=== PATIENT | female | born 1990 | race Caucasian/White ===

== ENCOUNTER → 2018-05-30 13:36 | Outpatient (CLI) | payer SELFPAY ==
[2018-05-30 15:57] LABS: Thyroid Stim Hormone (TSH) 1.36 uIU/mL (0.358-3.74)
[2018-06-05 13:30] LABS: HPV Reflexed? NOT INDICATED
== END ==
PROVIDERS: Visit Provider Obstetrics & Gynecology
DX: Z12.4 Encounter for screening for malignant neoplasm of cervix (principal); N92.6 Irregular menstruation, unspecified
CPT/HCPCS: 84443; 87624; 88175; G0145

== ENCOUNTER → 2018-09-13 13:52 | Outpatient (CLI) | payer SELFPAY ==
[2018-09-13 17:02] LABS: Chlamydia Trachomatis by PCR Negative (Negative); Neisserai gonorrhoeae by PCR Negative (Negative); Probe Check PASS; Specimen Processing Control PASS
[2018-09-13 17:03] LABS: Sample Adequacy Control PASS
== END ==
PROVIDERS: Visit Provider Obstetrics & Gynecology
DX: Z11.3 Encounter for screening for infections with a predominantly sexual mode of transmission (principal)
CPT/HCPCS: 87491; 87591

== ENCOUNTER → 2018-09-18 15:06 | Outpatient (CLI) | payer SELFPAY ==
[2018-09-18 17:36] LABS: Color, Urine Yellow (Yellow); Glucose, Dipstick Normal (Normal); Ketone-Dipstick 5 mg/dl (Negative); Leukocyte Esterase-Dipstick 500 /ul (Negative); Nitrite-Dipstick Negative (Negative); Occult Blood-Urine Negative /ul (Negative); Protein-Dipstick Negative (Negative); Specific Gravity, Urine 1.025 (1.002-1.030); Urine Bilirubin Dipstick Negative (Negative); Urine Clarity Clear (Clear); Urine Urobilinogen Normal (Normal)
[2018-09-18 17:39] LABS: Absolute Lymphocyte Count 1.26 X10^3/ul (0.83-4.51); Absolute Neutrophil Count 8.5 X10^3/uL (2.0-7.7); Basophil# 0.01 X10^3/uL; Basophil% 0.1 % (0-1); Eosinophil# 0.03 X10^3/uL; Eosinophils% 0.3 % (0-5); Hematocrit 37.8 % (37-47); Hemoglobin 12.8 g/dl (12.0-15.0); Lymphocyte # 1.26 X10^3/ul (4.0); Lymphocyte % 12.3 % (19-41); Mean Corp Hgb Conc 33.9 g/gl (32-36); Mean Corpuscular Hgb 27.7 pg (27.0-32.0); Mean Corpuscular Volume 81.8 fL (81-99); Monocyte# 0.46 X10^3/uL; Monocyte% 4.5 % (0-10); Neutrophil % 82.6 % (47-70); Platelet Count 305 K/mm3 (150-450); RBC Distribution Width CV 12.2 % (11.6-14.6); RBC Distribution Width SD 35.6 fl (35.1-43.9); Red Blood Count 4.62 M/mm3 (4.2-5.4); White Blood Count 10.3 K/mm3 (4.4-11.0)
[2018-09-18 17:41] LABS: POSITIVE COUNT NO; POSITIVE DIFFERENTIAL NO; POSITIVE MORPHOLOGY NO
[2018-09-18 18:07] LABS: Thyroid Stim Hormone (TSH) 1.35 uIU/mL (0.358-3.74)
[2018-09-18 18:46] LABS: HIV - WCH Non-Reactive (Nonreactive); Rubella IgG 99.1 IU/mL
[2018-09-20 03:12] LABS: Prenatal RPR NONREACTIVE (NONREACTIVE)
[2018-09-20 08:17] LABS: HEPATITIS B SURFACE AG Negative (Negative); Hep C Antibodies <0.1 s/co ratio (0.0-0.9)
== END ==
PROVIDERS: Visit Provider Obstetrics & Gynecology
DX: Z34.81 Encounter for supervision of other normal pregnancy, first trimester (principal)
CPT/HCPCS: 36415; 80307; 81002; 84443; 85025; 86703; 86762; 86803; 87340

== ENCOUNTER → 2019-02-13 13:03 | Outpatient (CLI) | payer SELFPAY ==
[2019-02-13 14:02] LABS: Hematocrit 31.5 % (37-47); Hemoglobin 10.7 g/dL (12.0-15.0); Mean Corpuscular Volume 85.4 fL (81-99); Mean Platelet Vol. 11.4 fl (6.2-12.0); Platelet Count 154 K/mm3 (150-450); RBC Distribution Width CV 12.3 % (11.6-14.6); RBC Distribution Width SD 37.7 fl (35.1-43.9); Red Blood Count 3.69 M/mm3 (4.2-5.4); White Blood Count 7.9 K/mm3 (4.4-11.0)
[2019-02-13 14:16] LABS: Glucose Challenge Gest 1H 50g 120 mg/dL (70-140)
== END ==
LOC: WOBLAB 13:03
PROVIDERS: Visit Provider Obstetrics & Gynecology
DX: Z34.83 Encounter for supervision of other normal pregnancy, third trimester (principal); Z3A.00 Weeks of gestation of pregnancy not specified
CPT/HCPCS: 36415; 82950; 85027

== ENCOUNTER → 2019-04-17 14:14 | Outpatient (CLI) | payer SELFPAY | LOC: LABSPEC 14:15 | PROVIDERS: Visit Provider Obstetrics & Gynecology | DX: Z36.85 Encounter for antenatal screening for Streptococcus B (principal) | CPT/HCPCS: 87081 ==

== ENCOUNTER 2019-05-10 15:05 | Inpatient (IN) | payer SELFPAY ==
[2019-05-10 14:52] VITALS: BMI 29.7
[2019-05-10 15:02] LABS: ROM Internal Control Test YES-OK TO RESULT pt. (Internal QC)
[2019-05-10 15:04] LABS: ROM Patient Test POSITIVE (Negative); Record Kit Lot#, ROM+ J8255
[2019-05-10] MEDS: Lactated Ringers 1,000 ML 50 ML IV (15:40)
[2019-05-10] MEDS: Lactated Ringers 500 ML 999 ML IV (15:48)
[2019-05-10 16:00] LABS: Absolute Lymphocyte Count 1.39 X10^3/uL (0.83-4.51); Absolute Neutrophil Count 8.1 X10^3/uL (2.0-7.7); Basophil# 0.01 X10^3/uL; Basophil% 0.1 % (0-1); Eosinophil# 0.02 X10^3/uL; Eosinophils% 0.2 % (0-5); Hematocrit 33.9 % (37-47); Lymphocyte # 1.39 X10^3/ul (4.0); Lymphocyte % 13.7 % (19-41); Mean Corp Hgb Conc 32.4 g/dL (32-36); Mean Corpuscular Hgb 25.2 pg (27.0-32.0); Mean Corpuscular Volume 77.6 fL (81-99); Mean Platelet Vol. 12.8 fl (6.2-12.0); Monocyte% 5.9 % (0-10); NRBC Flagged by Analyzer 0 % (0-5); Neutrophil # 8.08 X10^3/uL (2.7-7.7); Neutrophil % 79.7 % (47-70); Platelet Count 193 K/mm3 (150-450); RBC Distribution Width SD 38.7 fl (35.1-43.9); Red Blood Count 4.37 M/mm3 (4.2-5.4); White Blood Count 10.1 K/mm3 (4.4-11.0)
[2019-05-10] MEDS: fentaNYL-bupivacaine (epidural) 100 ML BAG EPIDURAL ×2 (16:15→21:06)
--- NOTE | 2019-05-10 18:14 | HP.PCM_ITS ---
History and Physical Date of Admission: 05/10/19 [facility] [place] - H[place]ORY AND PHYSICAL (05/10/2019) Name: ED SALINAS OB Physician: SHARON [place]'s Physician: [facility] ...................................................................... : 1990 Age: 28 Address: [address] [place] [address] Phone: (h) [phone] ([phone] Insurance Carrier: Emergency Contact: VJ SALINAS [phone] ...................................................................... Ed is a 28 yo at 40w1d gestation by 6w5d US; she reports SROM of clear fluid at 0800; has been been remarkable for an edge previa and bilateral renal pelvis dilation a .4cm which was found to be resolved at third trimester US; She is GBS negative. Final GARRICK: 05/09/19 By Ultrasound: 6 weeks 5 days PARITY: (G-Total Pregnancies P-Fullterm,Premature,Induced AB,Spont AB, Ectopics, Multiple,Living) GARRICK CONFIRMATION: By LMP: 07/16/18 Initial Exam: 04/22/19 By First Ultrasound Exam: 05/09/19 Final GARRICK: 05/09/19 BLOOD TYPE: AFP: 1 HR PG: GBS: Original Ordering Provider: Carina Marino Comments: VAG/REC LISA Culture Group B Beta Streptococcus is not isolated. Rublla titer (>10 immune)-- Hepatatis B renetta AG-- CULTURES:-- OB PROBLEM LIST: Decline AFP and CF tests. First del at [facility]. OB tour suggested. Edge previa, bilateral renal pelvis dilation at .4 cm; repeat u/s at 28-32 weeks gestation --resolved ALLERGIES: No Known Allergies MEDICATIONS: Macrobid 100 mg capsule One capsule by mouth 2 x daily x 7 days phenazopyridine 200 mg tablet One tablet by mouth every 8 hrs x 3 days 28 mg iron-800 mcg tablet One pill by mouth once a day Zofran 8 mg tablet take 1 tablet by mouth q 6 hr prn Nausea/vomitting SOCIAL HISTORY: Smoking - Never Alcohol Use - None Diet - moderate, balanced diet, caffeine < 2 drinks per day and [employer] member. Water intake 20-40 oz daily. Lifestyle - moderate stress lifestyle and Exercise - Active w family. 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 Job Description - Illicit Drug Use - None Sexual Activity - Residence - owns a home and lives with Place of - [place] Spouse-Sig Other Name - [facility] Spouse-Sig Other Occupation - Children's Intelligence Agent -- [employer] Spouse-Sig Other Phone No - [phone] Children Name(s) - Ross(17) PRIOR DELIVERY HISTORY DEL DATE GEST LAB WT LB WT OZ TYPE ANES LABOR TX Sep 17 41 6 [phone] Vag Epidural No ANTEPARTUM FLOW CHART VISIT GE RTC FU F F ND U U DATE WK MD WKS HT PN HR M SS BP ED WT ND GL D EF ST __ ____ ___ __ __ ___ __ __ __ ___ __ __ __ ___ __ 18 Apr KW 1 38 V + + 122/82 1+ 165 tr - Apr SHM 1 35 V + + 134/72 sl 161 tr - 2 50 -2 03 Apr 37 JMW 1 34 V + + 130/78 0 157 - - S -1 Mar 36 JMW 1 36 V + + 138/72 tr 157 tr - 2 50 -2 Mar JMW 1 34 + 126/70 sl 155 tr - Mar 33 JMW 2 34 + + 124/80 tr 150 tr - Mar 22 JMW 2 32 + + 120/80 0 152 tr - Feb 15 JMW 3 27 + + 108/70 0 146 - 1+ Feb 12 JMW 3 24 + + 122/82 0 141 tr - December 08 JMW 4 20 + + 110/60 0 135 - - December 04 JMW 4 15 + + 120/80 0 129 - - 03 Oct 31 DS 4 ? U+ O 112/62 0 128 - - Aug 28 JMW 4 U+ US 120/70 0 124 - - ANTEPARTUM NOTE(S): May 09 2019: feeling well. Cervix check. May 02 2019: doing well Apr 24 2019: feeling well. Cervix check. Apr 17 2019: GBS Today,LARC signed,Good FM Apr 10 2019: FM Noted,Low Pressure Mar 26 2019: Feeling Well, Good FM Mar 13 2019: feeling well. Feb 13 2019: feeling well. glucola drawn today. Jan 22 2019: Glucola/Instructions Given,Good FM, Feeling Well Dec 19 2018: feeling well., US OK Nov 21 2018: feeling well., Declines AFP Oct 23 2018: see note Sep 18 2018: Sono Today,Feeling Well COMPREHENSIVE ANTEPARTUM NOTE(S): May 09 2019: Feeling well; reports active FM; denies VB, LOF; reports UCs and extreme pelvic pressure, desires IOL; VE per patient request , soft, posterior; consents read and signed, post dates IOL scheduled for May 13; discussed warning signs, s/s Labor, when to call/come in; RTO 6 weeks for PPV - KVW May 02 2019: Feeling well; reports active FM; denies UCs, VB, LOF; measuring < dates, US ordered, shows normal size/growth, normal SUSAN, grade 3 placenta; discussed w/Dr. Ordonez, no imment need for deliveryat this time; discussed warning signs, s/s Labor, when to call/come in; RTO 1 week for PNV - KVW, Apr 21 2019: H taken to OB. tkg Apr 10 2019: Feeling well; reports active FM; denies UCs, VB, LOF; some heartburn, generally relieved by Tums; previous delivery was induced at 40+ weeks with cervidil, and progressed rapidly, short 2nd stage; discussed non pharmaceutical managemeht of heartburn, signs, s/s Labor, when to call/come in; RTO 1 week for PNV, GBS swab KVW Feb 26 2019: Ed calling @ 29 wks 5 days with onset urinary frequency 2 days ago, now having burning w/urination this morning. She is on vacation in [place], [place]. Advised plenty of water. Per discussion w/Dr. Marino. Rx Macrobid 100 mg # 14, one capsule by mouth q 12 hrs x 7 days, NO RF and Pyridium 200mg # 9, one tablet by mouth q 8 hrs x 3 days, NO RF called to Dolly, pharmacist, [place] [address] [facility], [facility] [address]. [place] [phone]. Oct 23 2018: labs were reviewed and are normal. Blood type AB positive. US c/w dating today. Oct 23 2018: Ed reporting constipation, nausea. She has Colace at home--advised to take BID. Discussed importance of keeping stool soft and moving daily. Can add a daily probiotic, which will help. Daily walk, weather is getting nicer. Plenty of water--urine spgr today 1.030. Sep 18 2018: Dolores are here for NOB nurse visit at 6 w 5 d with GARRICK May 09, 2019 planning a vag del at [facility] probably with an epidural, using [facility] for post disch ped care and to breastfeed. 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 They are happy about the . She states she had hypertension starting at 33 weeks with her first baby, delivered at 41.3 weeks in [place], [place]. She almost didn't pass the glucose tolerance test. Their baby weighed 6# 7 oz and had a couple NICU days from rapid delivery. She had an episiotomy and 3rd degree tear. She has NKA to drugs, food. latex or environment. Her diet is well balanced w minimal caffeine and 20-40 oz of water daily. She is fairly active at home with their two year old son and was enc to walk 20 min daily. She is a lifetime non smoker, non drinker and denies street drug use. Genetic Screening form completed noting Vj has a cousin with Down's Syndrome. They decline AFP and cF tests. Warning signs in pg reviewed as well as otc meds ok to use, reaching the office after hours, lifting restriction of 25# and wearing seatbelt low on her abd w understanding voiced. Their son weighs almost 30#- advised use care and good body mechanics if she has to lift him. They have a copy of What to Expect. They have no cats. She is aware of litter box issues. She's had chickenpox. Routine labs drawn today and US done. did not go well before and office Class suggested and info given. Info also given on [facility] OB dept tours. Enc to call w any concerns. Visit lasted approx 50 min. Ana MELENDREZ. Sep 16 2018: Cervical cultures NEG. EB Sep 13 2018: Ed presents here today for Missed Menses appointment. 27 y.o. G 3 P 1 non-smoker with regular menses and LMP of 12-25-18 lasting her average of 6-7 days. UPT is positive today in our Office. Presents at 8 weeks 2 days with an approximate GARRICK of 04-21-19. History of in 2017 at [facility]. Denies spotting/bleeding thus far in . Reports slight nausea and tender breasts. Currently taking an OTC Vitamin with Educational Materials given. Medication list up-dated. History of normal pap screenings with last in 2017. OLIVERIO Sep 13 2019: ok May 30 2018: Ed presents here today as referral from friend Ivis Saez for low libido and pain with intercourse. 27 y.o. G 2 P 1 non-smoker with regular menses and LMP of 10-13-18 lasting her average of 6-7 days. Reports she has been having these symptoms and concerns for the last 5-6 months. We briefly discussed stepping out of the box. Denies other client program manager concerns at this time. Last pap screening in 2015 with history of all normals. Medication list with No Meds. OLIVERIO May 30 2018: ok REVIEW OF SYSTEMS: GENERAL - Denies fever, or chills SKIN - Denies rash, new skin lesions, or change in moles EYES - Denies blurred vision, or change in visual acuity EARS - Denies ear pain, or difficulty hearing NOSE - Denies nasal congestion, discharge, or bleeding MOUTH - Denies sore throat, or difficulty swallowing NECK - Denies pain or swelling RESPIRATORY - Denies shortness of breath, cough, wheezing CARDIOVASCULAR - Denies palpitations, chest pain, orthopnea, PND, peripheral edema, syncope or claudication GASTROINTESTINAL - Denies nausea, vomiting, diarrhea, constipation, Denies abdominal pain, melena and or bright red blood GENITOURINARY - Denies dysuria, frequency of urination, urgency, or hesitancy MUSCULOSKELETAL - Denies joint or muscle pain, or back pain NEUROLOGICAL - Denies localized numbness, weakness, or tingling PSYCHIATRIC - Denies depression, anxiety, substance abuse or suicide attempts ENDOCRINE - Denies heat or cold intolerance, weight loss or gain, increasing thirst HEMATO-IMMUNOLOGIC - Denies easy bruising, bleeding, oral ulcerations or recurrent infections GENETICS SCREENING: Age 35+ years: No Thalassemia: No Neural Tube Defect: No Down Syndrome: No KAYLA-SACHS: No Sickle Cell Disease: No Hemophilia: No Musc. Dystrophy: No Cystic Fibrosis: No-declines screening Troy Chorea: No Mental Retardation: No Fragile X: No Other genetic: No Other defects: No SABs/still births: No Drugs since LMP: No INFECTION HISTORY: High risk AIDS: No High risk Hepatitis: No Exposed to TB: No Exposed to Herpes: No Rash/viral illness since LMP: No History of STD: No MENSTRUAL HISTORY: *Menses Amount/Duration: 6-7 DAYSMenses Regularity: RegularFrequency: monthlyMenarche (Age Onset): 11* PAST SUMMARY: PARITY: 1. Total Pregnancies............ 3 2. Full Term Pregnancies........ 1 3. Premature.................... 0 4. Abortions - Induced.......... 0 5. Abortions - Spontaneous...... 1 6. Ectopics..................... 0 7. Multiple Births.............. 0 8. Living Children.............. 1 PAST #1: Date of :.................. 09/21/16 Gestation Weeks:................ 41 Length of labor(hours):......... 6 Sex:............................ M Weight-lbs:............... 6 Weight-oz:................ 7 Type of Delivery:............... Vag Type of Anesthesia:............. Epidural Place of Delivery:.............. [place] Treatment of Labor?:.... No Comment: 33W BP UP, Labs for : ED SALINAS since 08/12/2018 ORDER DATEIN DESCRIPTION VALUE UNITS RANGE A+ COMMENT TYPE AND SCREEN 05/10/19 Reason for Type AND Screen/Red Cells: Labor [facility]~[address] [place], [address]~ BLOOD TYPE GEL AB POSITIVE N ANTIBODY SCREEN NEGATIVE N Reviewed by ANDERSON w CBC W/DIFF, AUTOMATED 05/10/19 NOTE Original Ordering Provider: SOWMYA Pereira WBC 10.1 K/mm3 4.4-11.0 RBC 4.37 M/mm3 4.2-5.4 HGB 11.0 g/dL 12.0-15.0 L HCT 33.9 % 37-47 L w MCV 77.6 fL 81-99 L MCH 25.2 pg 27.0-32.0 L MCHC 32.4 g/dL 32-36 RDW CV 14.0 % 11.6-14.6 RDW SD 38.7 fl 35.1-43.9 PLT 193 K/mm3 150-450 MPV 12.8 fl 6.2-12.0 H NEUT% 79.7 % 47-70 H LY% 13.7 % 19-41 L MONO% 5.9 % 0-10 EO% 0.2 % 0-5 BASO% 0.1 % 0-1 IM GRAN % 0.400 % 0.0-0.9 IG% - Immature Granulocytes (promyelocytes, myelocytes and metamyelocytes) > 1% indicates that a LEFT SHIFT is Present. ABSOLUTE NEUT 8.1 X10 3/uL 2.0-7.7 H ABSOLUTE LYMPH 1.39 X10 3/uL 0.83-4.51 NRBC, FLAGGED 0 % 0-5 Reviewed by ANDERSON (ROM) RUPTURE OF MEMBRANES 05/10/19 NOTE Original Ordering Provider: SOWMYA Pereira ROM POSITIVE Negative H Amniotic fluid present indicates rupture of Membranes. RESULTS CALLED TO GHAZALA 05/10/19 Lora2 Mary Negron. REPORT READ BACK BY DARREN . Reviewed by ANDERSON CULTURE, GROUP B STREPTOCOCCUS 04/17/19 NOTE Original Ordering Provider: Carina Marino Comments: VAG/REC LISA Culture Group B Beta Streptococcus is not isolated. Reviewed by CARINA GLUCOSE CHALLENGE GEST 1H 50G 02/13/19 NOTE Original Ordering Provider: Carina Marino GLU GEST 50G 1H 120 mg/dL 70-140 Reviewed by CARINA CBC-COMPLETE BLOOD CNT NO DIFF 02/13/19 NOTE Original Ordering Provider: Carina Marino WBC 7.9 K/mm3 4.4-11.0 RBC 3.69 M/mm3 4.2-5.4 L HGB 10.7 g/dL 12.0-15.0 L HCT 31.5 % 37-47 L MCV 85.4 fL 81-99 MCH 29.0 pg 27.0-32.0 MCHC 34.0 g/dL 32-36 RDW CV 12.3 % 11.6-14.6 RDW SD 37.7 fl 35.1-43.9 PLT 154 K/mm3 150-450 MPV 11.4 fl 6.2-12.0 Reviewed by CARINA HEPATITIS C ANTIBODIES 09/18/18 NOTE Original Ordering Provider: Carina Marino HEP C AB <0.1 s/co ratio 0.0-0.9 Negative: < 0.8 Indeterminate: 0.8 - 0.9 Positive: > 0.9 The CDC recommends that a positive HCV antibody result be followed up with a HCV Nucleic Acid Amplification test (225654). Reviewed by BROOKLYNN HEPATITIS B SURFACE AG 09/18/18 NOTE Original Ordering Provider: Carina Marino HB SURF AG Negative Negative Performed at: [address] [id number] Jig Builder: Lew Cowart PhD, Phone: [phone] Reviewed by BROOKLYNN RPR 09/18/18 NOTE Original Ordering Provider: Carina Marino RPR NONREACTIVE NONREACTIVE Reviewed by BROOKLYNN HIV - [facility] 09/18/18 NOTE Original Ordering Provider: Carina Marino HIV - [facility] Non-Reactive Nonreactive Reviewed by CARINA RUBELLA IGG 09/18/18 NOTE Original Ordering Provider: Carina Marino RUBELLA IGG 99.1 IU/mL Antibody results Interpretation of Immune Status < 5 IU/ml Presumed Non-immune 5 - < 10 IU/ml Equivocal > or = 10 IU/ml Presumed Immune Reviewed by CARINA T AND S-NO CHARGE W/PNP 09/18/18 Reason for Type AND Screen/Red Cells: Surgery? N [facility]~[address] [place], [address]~ BLOOD TYPE GEL AB POSITIVE N AB SCREEN GEL NEGATIVE N Reviewed by CARINA THYROID STIM HORMONE (TSH) 09/18/18 NOTE Original Ordering Provider: Carina Marino TSH 1.35 uIU/mL 0.358-3.74 Reviewed by CARINA CBC W/DIFF, AUTOMATED 09/18/18 NOTE Original Ordering Provider: Carina Marino WBC 10.3 K/mm3 4.4-11.0 RBC 4.62 M/mm3 4.2-5.4 HGB 12.8 g/dl 12.0-15.0 HCT 37.8 % 37-47 MCV 81.8 fL 81-99 MCH 27.7 pg 27.0-32.0 MCHC 33.9 g/gl 32-36 RDW CV 12.2 % 11.6-14.6 RDW SD 35.6 fl 35.1-43.9 PLT 305 K/mm3 150-450 MPV 10.0 fl 6.2-12.0 NEUT% 82.6 % 47-70 H LY% 12.3 % 19-41 L MONO% 4.5 % 0-10 EO% 0.3 % 0-5 BASO% 0.1 % 0-1 IM GRAN % 0.200 % 0.0-0.9 IG% - Immature Granulocytes (promyelocytes, myelocytes and metamyelocytes) > 1% indicates that a LEFT SHIFT is Present. ABSOLUTE NEUT 8.5 X10 3/uL 2.0-7.7 H ABSOLUTE LYMPH 1.26 X10 3/ul 0.83-4.51w Reviewed by CARINA URINALYSIS, ROUTINE (DIPSTICK) 09/18/18 NOTE Original Ordering Provider: Carina Marino COLOR Yellow Yellow CLARITY Clear Clear GLUCOSE, UR Normal mg/dl Normal BILIRUBIN URINE Negative mg/dL Negative KETONE UR 5 mg/dl Negative H SP.GR. DIPSTX 1.025 1.002-1.030 PH UR 5.0 5.0 - 8.0 PROT DIPSTX Negative mg/dl Negative UROBILI Normal mg/dl Normal NITRITE UR Negative Negative OCCULT BLOOD-URw Negative /ul Negative LEUK ESTERASE 500 /ul Negative H Reviewed by CARINA URINE DRUG SCREEN (VISTA) 09/18/18 NOTE Original Ordering Provider: Carina aMrino TO BE CONFIRMED CONFIRMATORY TESTING FOR ALL POSITIVE URINE DRUG SCREEN RESULTS WILL ONLY BE SENT OUT UPON PHYSICIAN ORDER. VISTA Urine Drug Screen methods provide only preliminary analytical test results. A more specific alternate chemical method must be used in order to obtain a confirmed analytical result. Gas chromatography/mass spectrometery (GC/MS) is the preferred confirmatory method. Clinical consideration and professional judgement should be applied to any drug of abuse test result, particularly when preliminary positive results are used. URINE TCA TESTING MUST BE ORDERED SEPARATELY. USE TEST MNEMONIC: UTCA Reviewed by CARINA gonzalez CT/CHRISTOPHER [facility] BY PCR 09/13/18 NOTE Original Ordering Provider: Carina Marino [facility] PCR Negative Negative NG BY PCR Negative Negative Reviewed by BROOKLYNN PROVIDER SIGNATURE ( REQUIRED) PHYSICAL EXAMINATION General Appearence: 28 yo female in no acute distress Vital Signs: AF, VSS Heart: RRR without rubs or gallops Lungs: CTA x 2 Breasts: deferred Abdomen: gravid Pelvis: Cervix: 5/80/-1 at 1500 Presentation: cephalic Fetus: Size: AGA Movement: present Heart: 135 baseline, moderate variability, with accels, no decels UCs: Q 3-5 minutes Impression:28 yo at 40w1d gestation by 6w5d US SROM in active Labor GBS negative Cat 1 FHTs Plan: Admit to inpatient Continuous EFM Begin pitocin augmentation
[2019-05-10] MEDS: Oxytocin 30 units/NS 500 ml 30 UNITS/500 ML IV.SOLN IV (21:25)
[2019-05-10] MEDS: Oxytocin 30 units/NS 500 ml 30 UNITS/500 ML IV.SOLN 334 UNITS IV (23:25)
--- NOTE | 2019-05-11 00:13 | PCM.OPRPT ---
Vaginal Delivery Maternal Presentation: Active Labor, Spontaneous Rupture of Membranes Active labor after spontaneous rupture of membranes at home Method of Induction: Pitocin Amniotic Membrane Rupture Type: Artificial - rupture of forebag prior tro delivery Rupture of Membrane time: 1300 Amniotic Fluid Description: Clear, Moderate meconium Final GARRICK: 05/09/19 Final GARRICK Source: US <20 weeks Gestational age: 40 Weeks and 1 Days doctor who attended delivery (if requested by OB): Justin Yan Date of Procedure: 05/11/19 Pre-Operative Diagnosis: 28 yo at 40 weeks 1 day gestation, active labor with SROM at home Post-Operative Diagnosis: Surgery/ Procedure Performed: Spontaneous Vaginal Delivery Type of Anesthesia: Epidural Description of Procedure: Pushed well and delivered a vigorous male OA to TRINO over a second degree vaginal/perineal laceration; shoulders followed easily; placed on mother's abdomen, cord clamped x 2 by provider, cut by FOB and handed over to waiting pediatric staff as moderate meconium stained fluid had been noted during labor; the baby was soon returned to his mother, APGARS 8/9; placenta delivered spontaneously, Suhas mechanism, intact with trailing membranes noted, 3-vessel cord, central insertion; second degree vaginal/perineal laceration repaied with 3-0 Vicryl, good hemostasis obtained; EBL 450 Lap sponge, Raytec and instrument count correct x 2 with RN Presentation: Vertex, TRINO Placental Delivery Description: Spontaneous Placenta Disposition: [facility] Cord Vessel Description: 3 Vessels Cord Entanglement: None Estimated Blood Loss: 450 Infant A gender: Female (1 minute): 8 (5 minute): 9 Laceration: Midline, Perineal Extension/lac Medications given after delivery: IV Pitocin
[2019-05-11 05:42] VITALS: BP 135/80; PULSE 97; RESP 18; TEMP 37.2
[2019-05-11] MEDS: Ibuprofen 600 MG Tablet PO ×3 (07:52→22:51)
[2019-05-11 08:22] VITALS: BP 136/86; PULSE 90; RESP 16; TEMP 36.9
[2019-05-11 12:00] VITALS: BP 136/89; PULSE 70; RESP 16; TEMP 36.6
[2019-05-11] MEDS: Acetaminophen 500 MG Tablet 1000 MG PO (12:31)
--- NOTE | 2019-05-11 15:08 | PCM.PN.OB ---
Subjective: Pain well controlled, tolerating diet, passing flatus, well Objective: AVSS Breasts soft, nipples atraumatic Fundus firm, midline, u/2, lochia small Perineal repair well approximated, dry, intact, mild edema, no drainage or erythema - Physical Exam General: Alert, Oriented x3, Cooperative, No apparent distress HEENT: PERRLA, EOMI Oral: Moist Mucosa Neck: Supple Lungs: Clear to auscultation, Normal air movement Cardiovascular: Regular rate, Regular Rhythm Abdomen: Bowel Sounds Present, Soft, Non Tender, Non-Distended, Passing Flatus Extremities: No edema, Peripheral Pulses Normal Skin: No rashes Musculoskeletal: No Tenderness to Palpation of Joints or Extremities Neurological: Cranial nerves II-XII grossly intact, Deep Tendon Reflexes 2+/4 and Symmetrical Psych/Mental Status: Normal Affect, Appropriate, Alert and oriented to time, place, person, mood and affect Vital Signs Temp Pulse Resp BP 97.8 F 70 16 136/89 H 05/11/19 12:00 05/11/19 12:00 05/11/19 12:00 05/11/19 12:00 Oxygen Delivery Method Room Air Weight: 167 lb 8 oz Body Mass Index (BMI) 29.7 Intake and Output for Last 24 Hours 05/09/19 05/10/19 05/11/19 23:59 23:59 23:59 Intake Total 392.14 / 392.14 500 / 500 Output Total 1600 / 1600 Balance 392.14 / 392.14 -1100 / -1100 Laboratory Tests Past 24 Hrs 05/10/19 05/10/19 15:40 15:40 WBC 10.1 RBC 4.37 Hgb 11.0 L Hct 33.9 L MCV 77.6 L MCH 25.2 L MCHC 32.4 RDW Std Deviation 38.7 RDW Coeff of Cherie 14.0 Plt Count 193 MPV 12.8 H Immature Gran % (Auto) 0.400 Neut % (Auto) 79.7 H Lymph % (Auto) 13.7 L Gaston % (Auto) 5.9 Eos % (Auto) 0.2 Baso % (Auto) 0.1 Absolute Neuts (auto) 8.1 H Absolute Lymphs (auto) 1.39 Nucleated RBC % 0 Blood Type AB POSITIVE Antibody Screen NEGATIVE Medical Necessity - Tobacco Use Smoking Status: Never smoker Assessment/Plan Assessment: 28 yo G2now P2002 at 40w1d gestation by 6w5d US PP Day #1, normal involution, normal PP course Plan: Discharge teaching completed May discharge home at 24 hours if stable
[2019-05-11 16:00] VITALS: BP 129/77; PULSE 88; RESP 16; TEMP 36.8
[2019-05-11] MEDS: Senna/Docusate Sodium 1 Tablet PO (16:36)
--- NOTE | 2019-05-11 18:00 | DCINST_ITS ---
Discharge Diet: No Restrictions Discharge Activity: Return to Normal Activity, May Drive, May Shower, May Take a Tub Bath Return to work on:: 06/22/19 May resume sexual activity in: 6-8 weeks Weight Bearing Status: Weight bearing as tolerated Lifting Restrictions: Nothing heavier than the baby for two weeks Additional Activity Instructions:: No cleaning, cooking, shopping or long car rides for two weeks; 12 hours sleep in 24 hours for two weeks; sleep when the baby sleeps Additional Instructions: If you experience any of the following, contact your healthcare provider. * Bleeding that soaks a pad every hour for 2 hours * Fever 100.4 or higher * Unrelieved incision or abdominal pain * Swelling, redness, discharge or bleeding from your incision or episiotomy site * Your incision begins to separate * Problems urinating (including inability to urinate or burning while urinating). * Visual changes * Severe headache * Flu-like symptoms * Pain or redness in one of both of your breasts * Pain, warmth, tenderness or swelling in your legs, especially the calf area * Frequent nausea and vomiting * Symptoms of depression or anxiety If you experience any of the following, call 911 or go to the nearest Emergency Room. * Chest pain * Problems breathing * Seizure activity * Partial or complete paralysis of a body part, slurred speech, weakness or drooping of the face, or a sudden inability to walk or hold your balance Allergies/Adverse Reactions: Allergies No Known Allergies Allergy (Verified 05/10/19 15:15) Medications to take at Discharge Prenatabs FA 1 cap PO DAILY 05/10/19 Please Follow Up With: Christy Pereira CNM When: 6 weeks for post checkup Primary Care Physician: Care Physician,No Primary [Primary Care Provider] - Test Results: Test results from this visit will be discussed in further detail at your follow- up appointment, if applicable.
[2019-05-11 21:26] VITALS: BP 124/77; PULSE 85; RESP 18; TEMP 37.1
[2019-05-12 02:04] VITALS: BP 130/74; PULSE 74; RESP 18; TEMP 36.4
--- NOTE | 2019-05-12 04:30 | NURSING ---
Taking over pt and care at this time.
[2019-05-12 06:18] LABS: Hematocrit 29.9 % (37-47); Hemoglobin 9.3 g/dL (12.0-15.0); Mean Corp Hgb Conc 31.1 g/dL (32-36); Mean Corpuscular Hgb 24.7 pg (27.0-32.0); Mean Corpuscular Volume 79.5 fL (81-99); Mean Platelet Vol. 12.3 fl (6.2-12.0); Platelet Count 172 K/mm3 (150-450); RBC Distribution Width SD 39.4 fl (35.1-43.9); Red Blood Count 3.76 M/mm3 (4.2-5.4); White Blood Count 9.6 K/mm3 (4.4-11.0)
--- NOTE | 2019-05-12 09:39 | PCM.PN.OB ---
Subjective: Pain well controlled, tolerating diet, passing flatus, well; desires DC home today Objective: AVSS Breasts filling, nipples with minor irritation Fundus firm, midline, u/2, lochia scant Perineal repair well approximated, mild edema, no drainage noted - Physical Exam General: Alert, Oriented x3, Cooperative HEENT: PERRLA, EOMI Oral: Moist Mucosa Neck: Supple Lungs: Clear to auscultation, Normal air movement Cardiovascular: Regular rate, Regular Rhythm Abdomen: Bowel Sounds Present, Soft, Non Tender, Passing Flatus Extremities: No edema Musculoskeletal: No Tenderness to Palpation of Joints or Extremities Neurological: Cranial nerves II-XII grossly intact, Deep Tendon Reflexes 2+/4 and Symmetrical Psych/Mental Status: Normal Affect, Appropriate, Alert and oriented to time, place, person, mood and affect Vital Signs Temp Pulse Resp BP 97.6 F L 74 18 130/74 H 05/12/19 02:04 05/12/19 02:04 05/12/19 02:04 05/12/19 02:04 Oxygen Delivery Method Room Air Weight: 167 lb 8 oz Body Mass Index (BMI) 29.7 Intake and Output for Last 24 Hours 05/10/19 05/11/19 05/12/19 23:59 23:59 23:59 Intake Total 392.14 / 392.14 500 / 500 Output Total 1600 / 1600 Balance 392.14 / 392.14 -1100 / -1100 Laboratory Tests Past 24 Hrs 05/12/19 06:10 WBC 9.6 RBC 3.76 L Hgb 9.3 L Hct 29.9 L MCV 79.5 L MCH 24.7 L MCHC 31.1 L RDW Std Deviation 39.4 RDW Coeff of Cherie 14.0 Plt Count 172 MPV 12.3 H Medical Necessity - Tobacco Use Smoking Status: Never smoker Assessment/Plan Assessment: 28 yo G2 now P2002 delivered at 40w1d gestation by 6w5d US PP Day #2, normal involution, normal PP course Plan: Discharge teaching reviewed DC home RTO 6 weeks for PP checkup
[2019-05-12] MEDS: Ibuprofen 600 MG Tablet PO (10:16)
[2019-05-12 10:24] VITALS: BP 124/78; PULSE 84; RESP 20; TEMP 36.1
== END 2019-05-12 13:15 | disposition home or self-care (01) | DRG 807 ==
LOC: WPOUT 15:16 → WP 15:16
PROVIDERS: Admitting Provider Advanced Practice Midwife; Referring Provider Advanced Practice Midwife; Visit Provider Advanced Practice Midwife
DX: O77.0 Labor and delivery complicated by meconium in amniotic fluid (principal); O70.1 Second degree perineal laceration during delivery; Z3A.40 40 weeks gestation of pregnancy; Z37.0 Single live birth
CPT/HCPCS: 59025; 59050; 84112; 85025; 85027; 86850; 86900; 86901; 99218; J7120; G0378

== ENCOUNTER → 2019-06-25 12:56 | Outpatient (CLI) | payer SELFPAY | PROVIDERS: Visit Provider Advanced Practice Midwife | DX: N61.0 Mastitis without abscess (principal) | CPT/HCPCS: 87070; 87077; 87186; 87205 ==